=== PATIENT | male | born 2000 | race Caucasian/White ===

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

== ENCOUNTER 2020-01-02 15:04 | Emergency (ER) | payer BC ==
[2020-01-02 15:14] VITALS: BP 133/77; PULSE 65
--- NOTE | 2020-01-02 15:42 | EDM.PDOC ---
ED HPI GENERAL MEDICAL PROBLEM - General Chief Complaint: ENT Problem Stated Complaint: PAIN IN RT SIDE OF MOUTH Time Seen by Provider: 01/02/20 15:42 Source of Information: Reports: Patient History Limitations: Reports: No Limitations - History of Present Illness INITIAL COMMENTS - FREE TEXT/NARRATIVE: pt arrived with increased pain in the rt lower area. where the wisdom tooth was extracted. He has not had a fever but he does have sig swelling in th site. Onset: Gradual, Other ( He had all 4 teeth extracted all are doing well except the rt lower) Duration: Hour(s): Location: Reports: Face Associated Symptoms: Reports: No Other Symptoms - Related Data Allergies Allergy/AdvReac Type Severity Reaction Status Date / Time No Known Allergies Allergy Verified 01/02/20 15:17 Home Meds: Home Meds QUEtiapine [SEROquel] 1 tab PO BEDTIME 03/21/18 [History] Amoxicillin 1 tab PO BID 01/02/20 [History] Sertraline [Zoloft] 1 tab PO BEDTIME 01/02/20 [History] Past Medical History HEENT History: Reports: None Cardiovascular History: Reports: None Respiratory History: Reports: Asthma Gastrointestinal History: Reports: None Genitourinary History: Reports: None Musculoskeletal History: Reports: None Neurological History: Reports: None Psychiatric History: Reports: Anxiety, Depression, Other (See Below) Other Psychiatric History: Possible ADHD Endocrine/Metabolic History: Reports: None Hematologic History: Reports: None Immunologic History: Reports: None Oncologic (Cancer) History: Reports: None Dermatologic History: Reports: None - Past Surgical History Other GI Surgeries/Procedures: SURGICAL STOMACH REPAIR Social & Family History - Caffeine Use Caffeine Use: Reports: Soda ED ROS ENT - Review of Systems Review Of Systems: See Below Constitutional: Reports: Other ( increased pain) HEENT: Reports: No Symptoms Respiratory: Reports: No Symptoms Cardiovascular: Reports: No Symptoms Endocrine: Reports: No Symptoms GI/Abdominal: Reports: No Symptoms : Reports: No Symptoms Skin: Reports: No Symptoms Neurological: Reports: No Symptoms ED EXAM, ENT - Physical Exam Exam: See Below Text/Narrative:: pt arrived with swelling and pain in the rt lower wisdom tooth area. He had all 4 extracted on fri. Exam Limited By: No Limitations General Appearance: Alert, Anxious, Moderate Distress Ears: Normal TMs Nose: Normal Inspection Mouth/Throat: Other (swelling alog the jaw, ant lympm nodes swolllen. ) Head: Atraumatic Neck: Lymphadenopathy (R) Respiratory/Chest: No Respiratory Distress Cardiovascular: Regular Rate, Rhythm GI/Abdominal: Soft, Non-Tender Course - Vital Signs Last Recorded V/S: Last Vital Signs Temp 36.6 C 01/02/20 15:26 Pulse 65 01/02/20 15:26 Resp 16 01/02/20 15:26 BP 133/77 01/02/20 15:26 Pulse Ox 95 01/02/20 15:26 - Orders/Labs/Meds Orders: Active Orders 24 hr Category Date Time Status cefTRIAXone 1 GM,Lidocaine 1% 2.1 ML Med 01/02/20 15:49 Ordered cefTRIAXone [Rocephin] 1 gm Lidocaine 1% [Xylocaine-MPF 1%] 2.1 ml IM ONETIME - Re-Assessments/Exams Free Text/Narrative Re-Assessment/Exam: 01/02/20 15:55 pt was given rocephen 1 gm im. Departure - Departure Time of Disposition: 15:55 Disposition: Home, Self-Care 01 Condition: Fair Clinical Impression: History of wisdom tooth extraction, Infection of tooth socket - Discharge Information Referrals: Carolyn Coe MD [Primary Care Provider] - Forms: ED Department Discharge Care Plan Goals: zithromax, norco 5/325 q6h prn for pain, if not improving call oral surgeon who did the extraction. Sepsis Event Note - Evaluation Sepsis Screening Result: No Definite Risk - Focused Exam Vital Signs: Vital Signs Temp Pulse Resp BP Pulse Ox 01/02/20 15:26 36.6 C 65 16 133/77 95 01/02/20 15:13 36.6 C 65 16 133/77 95 Date Exam was Performed: 01/02/20 Time Exam was Performed: 15:50 - My Orders Last 24 Hours: My Active Orders 01/02/20 15:49 cefTRIAXone 1 GM,Lidocaine 1% 2.1 ML cefTRIAXone [Rocephin] 1 gm Lidocaine 1% [ Xylocaine-MPF 1%] 2.1 ml IM ONETIME - Assessment/Plan Last 24 Hours: My Active Orders 01/02/20 15:49 cefTRIAXone 1 GM,Lidocaine 1% 2.1 ML cefTRIAXone [Rocephin] 1 gm Lidocaine 1% [ Xylocaine-MPF 1%] 2.1 ml IM ONETIME
[2020-01-02] MEDS ORDERED: cefTRIAXone 1 GM, Lidocaine 1% 2.1 ML IM ONE ×2 (15:49)
== END 2020-01-02 16:09 | disposition home or self-care (01) ==
LOC: JP.ED 15:04
DX: K04.7 Periapical abscess without sinus (principal)
CPT/HCPCS: 96372; 99282; J0696; J2001

== ENCOUNTER 2020-03-18 12:41 | Emergency (ER) | payer BC, MEDICAID ==
[2020-03-18] MEDS ORDERED: Ondansetron 4 MG Tab.DIS PO ONE (12:58)
[2020-03-18] MEDS ORDERED: Ketorolac 60 MG/2 ML SDV IM ONE (12:58)
[2020-03-18] MEDS ORDERED: Acetaminophen/oxyCODONE 325-5 MG Tab PO STA (12:59)
[2020-03-18] MEDS ORDERED: Ondansetron 4 MG/2 ML SDV ONE (13:00)
[2020-03-18] MEDS ORDERED: Ketorolac 30 MG/ML SDV ONE (13:00)
[2020-03-18 13:02] VITALS: BP 130/73; PULSE 93
[2020-03-18] MEDS ORDERED: Ondansetron 4 MG/2 ML SDV IVPUSH ONE (13:17)
[2020-03-18] MEDS ORDERED: Ketorolac 30 MG/ML SDV IVPUSH ONE (13:17)
--- NOTE | 2020-03-18 13:23 | EDM.PDOC ---
ED HPI GENERAL MEDICAL PROBLEM - General Chief Complaint: Flank Pain Stated Complaint: RIGHT SIDE ABD PAIN Time Seen by Provider: 03/18/20 13:10 Source of Information: Reports: Patient, Old Records, RN History Limitations: Reports: No Limitations - History of Present Illness INITIAL COMMENTS - FREE TEXT/NARRATIVE: 19 yo male here with R flank pain that was mild and intermittent beginning about 4 days ago. Today the pain is severe. No gross hematuria or dysuria. No hx of kidney stones. No fever or chills. Has nausea without vomiting. No pain with pressing on the area. No SOB or cough. No self tx. Onset: Gradual Onset Date: 03/14/20 Duration: Day(s): (4), Getting Worse, Waxing/Waning Location: Reports: Back (R flank) Quality: Reports: Stabbing Severity: Severe Improves with: Reports: None Worsens with: Reports: Other (unknown) Context: Reports: Other (See HPI) Associated Symptoms: Reports: Nausea/Vomiting (no vomiting). Denies: Fever/ Chills Treatments EVENT SERVICES MANAGER: Reports: Other (see below) (none) - Related Data Allergies Allergy/AdvReac Type Severity Reaction Status Date / Time No Known Allergies Allergy Verified 03/18/20 12:49 Home Meds: Home Meds QUEtiapine [SEROquel] 1 tab PO BEDTIME 03/21/18 [History] Sertraline [Zoloft] 1 tab PO BEDTIME 01/02/20 [History] Acetaminophen/HYDROcodone [Robert 325-5 MG] 1 - 2 tab PO Q6H PRN #20 tab [Rx] Ondansetron [Zofran ODT] 4 mg PO Q6H PRN #10 tab.dis 03/18/20 [Rx] Past Medical History HEENT History: Reports: None Cardiovascular History: Reports: None Respiratory History: Reports: Asthma Gastrointestinal History: Reports: None Genitourinary History: Reports: None Musculoskeletal History: Reports: None Neurological History: Reports: None Psychiatric History: Reports: Anxiety, Depression, Other (See Below) Other Psychiatric History: Possible ADHD Endocrine/Metabolic History: Reports: None Hematologic History: Reports: None Immunologic History: Reports: None Oncologic (Cancer) History: Reports: None Dermatologic History: Reports: None - Past Surgical History Other GI Surgeries/Procedures: SURGICAL STOMACH REPAIR Social & Family History - Caffeine Use Caffeine Use: Reports: Soda ED ROS GENERAL - Review of Systems Review Of Systems: See Below Constitutional: Reports: No Symptoms HEENT: Reports: No Symptoms Respiratory: Reports: No Symptoms Cardiovascular: Reports: No Symptoms GI/Abdominal: Reports: No Symptoms, Nausea. Denies: Abdominal Pain, Black Stool , Bloody Stool, Constipation, Diarrhea, Hematemesis, Hematochezia, Melena, Vomiting : Reports: Flank Pain (right) Musculoskeletal: Reports: No Symptoms Skin: Reports: No Symptoms Neurological: Reports: No Symptoms ED EXAM, RENAL/ - Physical Exam Exam: See Below Exam Limited By: No Limitations General Appearance: Alert, WD/WN, Mild Distress Head: Atraumatic, Normocephalic Respiratory/Chest: No Respiratory Distress, Lungs Clear, Normal Breath Sounds, No Accessory Muscle Use Cardiovascular: Regular Rate, Rhythm, No Edema GI/Abdominal: Soft, Non-Tender, No Distention Extremities: Normal Inspection Neurological: Alert, Oriented, CN II-XII Intact, Normal Cognition, No Motor/ Sensory Deficits Psychiatric: Normal Affect, Normal Mood Skin Exam: Warm, Dry, Intact, Normal Color, No Rash Course - Vital Signs Last Recorded V/S: Last Vital Signs Temp 36.3 C 03/18/20 12:55 Pulse 93 03/18/20 12:55 Resp 16 03/18/20 12:55 BP 130/73 03/18/20 12:55 Pulse Ox 99 03/18/20 12:55 - Orders/Labs/Meds Labs: Laboratory Tests 03/18/20 Range/Units 13:24 Urine Color Yellow (YELLOW) Urine Appearance Slightly cloudy A (CLEAR) Urine pH 5.5 (5.0-8.0) Ur Specific [place] >= 1.030 (1.008-1.030) Urine Protein 30 H (NEGATIVE) mg/dL Urine Glucose (UA) Negative (NEGATIVE) mg/dL Urine Ketones Negative (NEGATIVE) mg/dL Urine Occult Blood Moderate H (NEGATIVE) Urine Nitrite Negative (NEGATIVE) Urine Bilirubin Small H (NEGATIVE) Urine Urobilinogen 0.2 (0.2-1.0) EU/dL Ur Leukocyte Esterase Negative (NEGATIVE) Urine RBC 50-75 H (0-5) Urine WBC 5-10 H (0-5) Ur Epithelial Cells Few Amorphous Sediment Not seen Urine Bacteria Few Urine Mucus Few Meds: Medications Discontinued Medications Generic Name Dose Route Start Last Admin Trade Name Freq PRN Reason Stop Dose Admin Ketorolac Tromethamine 60 mg 03/18/20 12:58 Toradol IM 03/18/20 12:59 ONETIME ONE Ketorolac Tromethamine Confirm 03/18/20 13:00 Toradol Administered 03/18/20 13:01 Dose 30 mg .ROUTE .STK-MED ONE Ketorolac Tromethamine 30 mg 03/18/20 13:17 03/18/20 13:22 Toradol IVPUSH 03/18/20 13:18 30 mg ONETIME ONE Administration Ondansetron HCl 4 mg 03/18/20 12:58 Zofran Odt PO 03/18/20 12:59 ONETIME ONE Ondansetron HCl Confirm 03/18/20 13:00 Zofran Administered 03/18/20 13:01 Dose 4 mg .ROUTE .STK-MED ONE Ondansetron HCl 4 mg 03/18/20 13:17 03/18/20 13:22 Zofran IVPUSH 03/18/20 13:18 4 mg ONETIME ONE Administration Oxycodone/Acetaminophen 1 tab 03/18/20 12:59 03/18/20 13:21 Percocet 325-5 Mg PO 03/18/20 13:00 1 tab NOW STA Administration - Re-Assessments/Exams Free Text/Narrative Re-Assessment/Exam: 03/18/20 13:55 Feeling better after our medications. Wants to wait on the CT scan. Departure - Departure Time of Disposition: 14:00 Disposition: Home, Self-Care 01 Condition: Fair Clinical Impression: Right kidney stone - Discharge Information *PRESCRIPTION DRUG MONITORING PROGRAM REVIEWED*: No *COPY OF PRESCRIPTION DRUG MONITORING REPORT IN PATIENT NICOLLE: No Prescriptions: Acetaminophen/HYDROcodone [Robert 325-5 MG] 1 - 2 tab PO Q6H PRN #20 tab PRN Reason: Pain Ondansetron [Zofran ODT] 4 mg PO Q6H PRN #10 tab.dis PRN Reason: Nausea Referrals: Carolyn Coe MD [Primary Care Provider] - Forms: ED Department Discharge Additional Instructions: Use Zofran as needed for nausea control. Drink enough urine so that your urine is almost colorless. Strain your urine and save any sediment for testing by your doctor. Take ibuprofen 600 mg every 6 hrs with food for pain relief starting after 7 pm today. Take Robert for added relief as needed. Return for fever or insufficient pain control or see your provider. If you haven't passed your stone by next you need to be seen again. Sepsis Event Note - Evaluation Sepsis Screening Result: No Definite Risk - Focused Exam Vital Signs: Vital Signs Temp Pulse Resp BP Pulse Ox 03/18/20 12:55 36.3 C 93 16 130/73 99 Date Exam was Performed: 03/18/20 Time Exam was Performed: 13:55
== END 2020-03-18 14:40 | disposition home or self-care (01) ==
LOC: JP.ED 12:41
DX: N20.0 Calculus of kidney (principal); F41.9 Anxiety disorder, unspecified; F32.9 Major depressive disorder, single episode, unspecified
CPT/HCPCS: 81001; 96374; 96375; 99284; A9270; J1885; J2405

== ENCOUNTER 2020-03-22 11:53 | Emergency (ER) | payer BC, MEDICAID ==
[2020-03-22 12:45] VITALS: BP 123/72; PULSE 111
[2020-03-22] MEDS ORDERED: Acetaminophen 500 MG Tab PO ONE (12:49)
[2020-03-22] MEDS ORDERED: Ketorolac 60 MG/2 ML SDV IM ONE (12:49)
--- NOTE | 2020-03-22 12:54 | EDM.PDOC ---
ED HPI GENERAL MEDICAL PROBLEM - General Chief Complaint: Flank Pain Stated Complaint: RT FLANK PAIN Time Seen by Provider: 03/22/20 12:40 Source of Information: Reports: Patient, Old Records History Limitations: Reports: No Limitations - History of Present Illness INITIAL COMMENTS - FREE TEXT/NARRATIVE: 19 yo male was seen here recently for a kidney stone. Was doing OK at home until he ran out of his hydrocodone. Took Toradol 10 mg po about 4 hrs ago without relief. No fever or nausea. Has not attempted per his knowledge to get into his primary's office. Lives with his parents still. Onset: Sudden Onset Date: 03/17/20 Duration: Day(s):, Waxing/Waning Location: Reports: Back (R flank) Quality: Reports: Ache, Stabbing Severity: Moderate Improves with: Reports: Medication Worsens with: Reports: Other (? stone movement, meds wearing off) Context: Reports: Other (See HPI) Associated Symptoms: Reports: No Other Symptoms Treatments SEWER TAPPER: Reports: NSAIDS (Toradol 10 mg po) Right Flank Pain Score (Numeric/FACES): 7 - Related Data Allergies Allergy/AdvReac Type Severity Reaction Status Date / Time No Known Allergies Allergy Verified 03/22/20 12:34 Home Meds: Home Meds Sertraline [Zoloft] 1 tab PO BEDTIME 01/02/20 [History] Acetaminophen/HYDROcodone [[place] 325-5 MG] 1 - 2 tab PO Q6H PRN #20 tab [Rx] Ondansetron [Zofran ODT] 4 mg PO Q6H PRN #10 tab.dis 03/18/20 [Rx] Past Medical History HEENT History: Reports: None Cardiovascular History: Reports: None Respiratory History: Reports: Asthma Gastrointestinal History: Reports: None Genitourinary History: Reports: None Musculoskeletal History: Reports: None Neurological History: Reports: None Psychiatric History: Reports: Anxiety, Depression, Other (See Below) Other Psychiatric History: Possible ADHD Endocrine/Metabolic History: Reports: None Hematologic History: Reports: None Immunologic History: Reports: None Oncologic (Cancer) History: Reports: None Dermatologic History: Reports: None - Past Surgical History Other GI Surgeries/Procedures: SURGICAL STOMACH REPAIR Social & Family History - Tobacco Use Smoking Status *Q: Former Smoker Used Tobacco, but Quit: Yes Month/Year Tobacco Last Used: 2020 - Caffeine Use Caffeine Use: Reports: None - Recreational Drug Use Recreational Drug Use: No ED ROS GENERAL - Review of Systems Review Of Systems: See Below Constitutional: Reports: No Symptoms HEENT: Reports: No Symptoms Respiratory: Reports: No Symptoms Cardiovascular: Reports: No Symptoms GI/Abdominal: Reports: No Symptoms. Denies: Nausea : Reports: Flank Pain (right). Denies: Dysuria, Hematuria, Urgency Musculoskeletal: Reports: No Symptoms Skin: Reports: No Symptoms Neurological: Reports: No Symptoms ED EXAM, RENAL/ - Physical Exam Exam: See Below Exam Limited By: No Limitations General Appearance: Alert, WD/WN, No Apparent Distress Eye Exam: Bilateral Eye: Normal Inspection Ears: Hearing Grossly Normal Nose: Normal Inspection, No Blood Throat/Mouth: Normal Voice, No Airway Compromise Head: Atraumatic, Normocephalic Neck: Normal Inspection Respiratory/Chest: No Respiratory Distress, Lungs Clear, Normal Breath Sounds, No Accessory Muscle Use Cardiovascular: Regular Rate, Rhythm, No Edema GI/Abdominal: Soft, Non-Tender, No Distention. No: Distended Back Exam: Normal Inspection. No: CVA Tenderness (R), CVA Tenderness (L) Extremities: Normal Inspection, Normal Range of Motion, Non-Tender, No Pedal Edema Neurological: Alert, Oriented, CN II-XII Intact, Normal Cognition, No Motor/ Sensory Deficits Psychiatric: Normal Affect, Normal Mood Skin Exam: Warm, Dry, Intact, Normal Color, No Rash Course - Vital Signs Last Recorded V/S: Last Vital Signs Temp 36.9 C 03/22/20 12:49 Pulse 111 H 03/22/20 12:49 Resp 17 03/22/20 12:49 BP 123/72 03/22/20 12:49 Pulse Ox 96 03/22/20 12:49 - Orders/Labs/Meds Orders: Active Orders 24 hr Category Date Time Status CULTURE URINE [RM] Stat Lab 03/22/20 13:12 Received Labs: Laboratory Tests 03/22/20 Range/Units 12:53 Urine Color Yellow (YELLOW) Urine Appearance Clear (CLEAR) Urine pH 6.0 (5.0-8.0) Ur Specific [place] 1.025 (1.008-1.030) Urine Protein Negative (NEGATIVE) mg/dL Urine Glucose (UA) Negative (NEGATIVE) mg/dL Urine Ketones Negative (NEGATIVE) mg/dL Urine Occult Blood Small H (NEGATIVE) Urine Nitrite Negative (NEGATIVE) Urine Bilirubin Negative (NEGATIVE) Urine Urobilinogen 0.2 (0.2-1.0) EU/dL Ur Leukocyte Esterase Trace H (NEGATIVE) Urine RBC 5-10 H (0-5) Urine WBC 5-10 H (0-5) Ur Epithelial Cells Rare Amorphous Sediment Not seen Urine Bacteria Rare Urine Mucus Not seen Urine Other Meds: Medications Discontinued Medications Generic Name Dose Route Start Last Admin Trade Name Gina PRN Reason Stop Dose Admin Acetaminophen 1,000 mg 03/22/20 12:49 03/22/20 12:53 Tylenol Extra Strength PO 03/22/20 12:50 1,000 mg ONETIME ONE Administration Ketorolac Tromethamine 60 mg 03/22/20 12:49 03/22/20 12:53 Toradol IM 03/22/20 12:50 60 mg ONETIME ONE Administration - Radiology Interpretation Free Text/Narrative:: CT abd/pelvis without qmquffqu-3-5 mm stone distal R ureter CT Results Date: 03/22/20 CT Results Time: 13:40 Departure - Departure Time of Disposition: 13:50 Disposition: Home, Self-Care 01 Condition: Fair Clinical Impression: Ureterolithiasis, Right kidney stone - Discharge Information *PRESCRIPTION DRUG MONITORING PROGRAM REVIEWED*: No *COPY OF PRESCRIPTION DRUG MONITORING REPORT IN PATIENT NICOLLE: No Instructions: Kidney Stones Referrals: Carolyn Coe MD [Primary Care Provider] - Forms: ED Department Discharge Additional Instructions: Continue straining urine and save any sediment. Recheck with your provider before the weekend. Drink lots of fluids. Take Aleve 2 every 8-12 hrs with food. Add [place] for added relief as needed OR acetaminophen. Sepsis Event Note - Focused Exam Vital Signs: Vital Signs Temp Pulse Resp BP Pulse Ox 03/22/20 12:49 36.9 C 111 H 17 123/72 96 03/22/20 12:44 36.9 C 111 H 17 123/72 96 Date Exam was Performed: 03/22/20 Time Exam was Performed: 13:44 - My Orders Last 24 Hours: My Active Orders 03/22/20 13:12 CULTURE URINE [RM] Stat - Assessment/Plan Last 24 Hours: My Active Orders 03/22/20 13:12 CULTURE URINE [RM] Stat
--- NOTE | 2020-03-22 13:39 | CT ---
Abdomen Pelvis wo Cont CLINICAL HISTORY: Microscopic hematuria, right flank pain COMPARISON: None. TECHNIQUE: Axial tomographic images are obtained from the dome of the diaphragm to the pubic symphysis without IV contrast enhancement. No oral contrast was used. Auto dosage reduction and iterative reconstruction techniques employed. FINDINGS: The lung bases are clear. The liver shows no mass or biliary dilatation. The gallbladder has a normal contour. The spleen is upper limits of normal size. The pancreas shows no mass or inflammatory change. The adrenal glands appear normal bilaterally. The right kidney is hydronephrotic. Right ureter is dilated along its length. There is a 3 x 4 mm stone in the distal ureter proximally 5 mm from the UVJ. There is a punctate nonobstructing stone in the mid to lower pole of the right kidney. There is a punctate calcification lower pole of the left kidney. There is no hydronephrosis or hydroureter. The bladder is empty there is some fecal retention in the right and transverse colon. The appendix has a normal contour. IMPRESSION: Partially obstructing 3 x 4 mm stone in the distal right ureter. Punctate nonobstructing renal calculi bilaterally
== END 2020-03-22 14:03 | disposition home or self-care (01) ==
LOC: JP.ED 11:53
DX: N13.2 Hydronephrosis with renal and ureteral calculous obstruction (principal); Z87.442 Personal history of urinary calculi; Z79.899 Other long term (current) drug therapy
CPT/HCPCS: 74176; 81001; 87086; 96372; 99284; A9270; J1885

== ENCOUNTER 2020-06-01 15:53 | Emergency (ER) | payer BC, MEDICAID ==
[2020-06-01] MEDS ORDERED: Ondansetron 4 MG/2 ML SDV IVPUSH ONE (16:58)
[2020-06-01] MEDS ORDERED: Sodium Chloride 0.9% 1,000 ML IV ONE (16:58)
[2020-06-01] MEDS ORDERED: Ketorolac 30 MG/ML SDV IVPUSH ONE (16:58)
--- NOTE | 2020-06-01 17:16 | EDM.PDOC ---
ED HPI GENERAL MEDICAL PROBLEM - General Chief Complaint: Flank Pain Stated Complaint: LILLIAN STONE Time Seen by Provider: 06/01/20 16:30 Source of Information: Reports: Patient, Family, Old Records History Limitations: Reports: No Limitations - History of Present Illness INITIAL COMMENTS - FREE TEXT/NARRATIVE: Garland is a 19yo male that presents to ED with his mother for c/o left flank pain. He does have a history of kidney stones in February of 2020. CT at that time showed a 3x4 mm stone in right side and a calcification at the lower pole of left kidney. Pain started 2 hours prior to arrival in left flank and radiating around to the front of the body towards the groin. Rates in 08/03- waxes and wanes some but is constant. Having associated nausea. Feels just like last kidney stone. Onset: Today Duration: Hour(s): (2) Location: Reports: Other (left flank) Quality: Reports: Same as Previous Episode, Sharp, Stabbing Severity: Severe Improves with: Reports: None Worsens with: Reports: None Associated Symptoms: Reports: Nausea/Vomiting Left Flank Pain Score (Numeric/FACES): 7 - Related Data Allergies Allergy/AdvReac Type Severity Reaction Status Date / Time No Known Allergies Allergy Verified 03/22/20 12:34 Home Meds: Home Meds Sertraline [Zoloft] 1 tab PO BEDTIME 01/02/20 [History] Ondansetron [Zofran ODT] 4 mg PO Q6H PRN #10 tab.dis 03/18/20 [Rx] Past Medical History HEENT History: Reports: None Cardiovascular History: Reports: None Respiratory History: Reports: Asthma Gastrointestinal History: Reports: None Genitourinary History: Reports: None Musculoskeletal History: Reports: None Neurological History: Reports: None Psychiatric History: Reports: Anxiety, Depression, Other (See Below) Other Psychiatric History: Possible ADHD Endocrine/Metabolic History: Reports: None Hematologic History: Reports: None Immunologic History: Reports: None Oncologic (Cancer) History: Reports: None Dermatologic History: Reports: None - Past Surgical History GI Surgical History: Reports: Other (See Below) Other GI Surgeries/Procedures: SURGICAL STOMACH REPAIR as infant Social & Family History - Tobacco Use Smoking Status *Q: Never Smoker - Caffeine Use Caffeine Use: Reports: Soda - Recreational Drug Use Recreational Drug Use: No ED ROS GENERAL - Review of Systems Review Of Systems: See Below Constitutional: Reports: No Symptoms HEENT: Reports: No Symptoms Respiratory: Reports: No Symptoms Cardiovascular: Reports: No Symptoms Endocrine: Reports: No Symptoms GI/Abdominal: Reports: Nausea : Reports: Flank Pain (left ) Musculoskeletal: Reports: No Symptoms Skin: Reports: No Symptoms Neurological: Reports: No Symptoms Psychiatric: Reports: No Symptoms Hematologic/Lymphatic: Reports: No Symptoms Immunologic: Reports: No Symptoms ED EXAM, RENAL/ - Physical Exam Exam: See Below Exam Limited By: No Limitations General Appearance: Alert, WD/WN, Mild Distress Head: Atraumatic, Normocephalic Neck: Normal Inspection, Non-Tender, Full Range of Motion. No: Lymphadenopathy (R), Lymphadenopathy (L) Respiratory/Chest: No Respiratory Distress, Lungs Clear, Normal Breath Sounds Cardiovascular: Normal Peripheral Pulses, Regular Rate, Rhythm, No Murmur GI/Abdominal: Normal Bowel Sounds, Soft, Non-Tender (Male) Exam: Deferred Rectal (Males) Exam: Deferred Back Exam: Normal Inspection, CVA Tenderness (L). No: CVA Tenderness (R) Extremities: Normal Inspection, Non-Tender, No Pedal Edema, Normal Capillary Refill Neurological: Alert, Oriented Psychiatric: Normal Affect, Normal Mood Skin Exam: Warm, Dry, Intact Lymphatic: No Adenopathy Course - Vital Signs Last Recorded V/S: Last Vital Signs Temp 98 F 06/01/20 16:57 Pulse 80 06/01/20 18:24 Resp 16 06/01/20 18:24 BP 122/70 06/01/20 18:24 Pulse Ox 98 06/01/20 18:24 - Orders/Labs/Meds Orders: Active Orders 24 hr Category Date Time Status HYDROmorphone [Dilaudid] Med 06/01/20 18:37 Once 0.5 mg IVPUSH ONETIME ONE Labs: Laboratory Tests 06/01/20 06/01/20 Range/Units 16:14 17:10 Sodium 139 L (140-148) mmol/L Potassium 3.9 (3.6-5.2) mmol/L Chloride 104 (100-108) mmol/L Carbon Dioxide 24 (21-32) mmol/L Anion Gap 14.9 H (5.0-14.0) mmol/L BUN 17 (7-18) mg/dL Creatinine 1.3 (0.8-1.3) mg/dL Est Cr Clr Drug Dosing 90.64 mL/min Estimated GFR (MDRD) > 60 (>60) Glucose 97 (74-106) mg/dL Calcium 9.5 (8.5-10.1) mg/dL Urine Color Yellow (YELLOW) Urine Appearance Slightly cloudy A (CLEAR) Urine pH 5.5 (5.0-8.0) Ur Specific [place] >= 1.030 (1.008-1.030) Urine Protein Negative (NEGATIVE) mg/dL Urine Glucose (UA) Negative (NEGATIVE) mg/dL Urine Ketones Negative (NEGATIVE) mg/dL Urine Occult Blood Moderate H (NEGATIVE) Urine Nitrite Negative (NEGATIVE) Urine Bilirubin Negative (NEGATIVE) Urine Urobilinogen 0.2 (0.2-1.0) EU/dL Ur Leukocyte Esterase Negative (NEGATIVE) Urine RBC 20-30 H (0-5) Urine WBC 0-5 (0-5) Ur Epithelial Cells Rare Amorphous Sediment Not seen Urine Bacteria Not seen Urine Mucus Moderate Urine Other Meds: Medications Discontinued Medications Generic Name Dose Route Start Last Admin Trade Name Freq PRN Reason Stop Dose Admin Hydromorphone HCl 0.5 mg 06/01/20 17:38 06/01/20 17:48 Dilaudid IVPUSH 06/01/20 17:39 0.5 mg ONETIME ONE Administration Sodium Chloride 1,000 mls @ 999 mls/hr 06/01/20 16:58 06/01/20 17:19 Normal Saline IV 06/01/20 17:58 999 mls/hr .BOLUS ONE Administration Ketorolac Tromethamine 30 mg 06/01/20 16:58 06/01/20 17:23 Toradol IVPUSH 06/01/20 16:59 30 mg ONETIME ONE Administration Ondansetron HCl 4 mg 06/01/20 16:58 06/01/20 17:21 Zofran IVPUSH 06/01/20 16:59 4 mg ONETIME ONE Administration Tamsulosin HCl 0.4 mg 06/01/20 17:38 06/01/20 17:47 Flomax PO 06/01/20 17:39 0.4 mg ONETIME ONE Administration - Radiology Interpretation Free Text/Narrative:: CT results discussed with mother and patient. Departure - Departure Time of Disposition: 18:39 Disposition: Home, Self-Care 01 Condition: Good Clinical Impression: Renal calculus, left, Hydronephrosis with ureteral calculus - Discharge Information *PRESCRIPTION DRUG MONITORING PROGRAM REVIEWED*: No *COPY OF PRESCRIPTION DRUG MONITORING REPORT IN PATIENT NICOLLE: No Instructions: Kidney Stones, [id number] Referrals: Carolyn Coe MD [Primary Care Provider] - Forms: ED Department Discharge Additional Instructions: Take 1 Flomax daily for the next five days. Use the toradol and Percocet as needed for pain. Do not use the toradol for more than 5 days. Strain your urine. Your stone is 1mm so it may be really hard to see. Push lots of fluids and avoid all pop/ soda. Call or return to ED with worsening of symptoms or other concerns. Sepsis Event Note (ED) - Evaluation Sepsis Screening Result: No Definite Risk - Focused Exam Vital Signs: Vital Signs Temp Pulse Resp BP Pulse Ox 06/01/20 18:24 80 16 122/70 98 06/01/20 16:57 98 F 108 H 20 115/81 96 06/01/20 16:42 108 H 115/81 96 06/01/20 16:19 98 F 98 20 115/81 96 - My Orders Last 24 Hours: My Active Orders 06/01/20 18:37 HYDROmorphone [Dilaudid] 0.5 mg IVPUSH ONETIME ONE - Assessment/Plan Last 24 Hours: My Active Orders 06/01/20 18:37 HYDROmorphone [Dilaudid] 0.5 mg IVPUSH ONETIME ONE Plan: discharge home with mother. Scripts for Flomax, pain medications (Toradol and Percocet).
[2020-06-01] MEDS ORDERED: Tamsulosin 0.4 MG Cap.ER PO ONE (17:38)
[2020-06-01] MEDS ORDERED: HYDROmorphone 0.5 MG/0.5 ML Syringe IVPUSH ONE ×2 (17:38→18:37)
--- NOTE | 2020-06-01 18:13 | CRLCT ---
INDICATION: Left flank pain TECHNIQUE: CT abdomen and pelvis without contrast. COMPARISON: 03/22/2020 FINDINGS: Lower chest: Unremarkable. Liver: Unremarkable. Spleen: Upper limits of normal splenic size. Pancreas: Unremarkable. Gallbladder and bile ducts: Apparent gallbladder sludge. Adrenal glands: Unremarkable. Kidneys: Mild left hydronephrosis and dilatation of the extrarenal pelvis with a punctate calcification in the distal left ureter proximal to the UVJ on image 188, measuring approximately 1 mm. Small nonobstructive bilateral renal calcifications, measuring 2 mm. GI tract: No bowel obstruction. No evidence of appendicitis. No significant pericolonic changes. Stool throughout the majority of the colon. Vascular structures: Unremarkable. Lymph nodes: Unremarkable. Miscellaneous: Mild bladder wall thickening which could be related to underdistention. An unremarkable prostate. Pelvic Organs: Unremarkable. Bones: Unremarkable for age. IMPRESSION: Mild left obstructive uropathy with a 1 mm calculus in the distal left ureter. Small nonobstructive renal calcifications. Mild bladder wall thickening versus underdistention. Correlate with urinalysis to exclude mild cystitis. Dictated by Carlos Pineda MD @ 06/01/2020 6:11:39 PM Please note that all CT scans at this facility use dose modulation, iterative reconstruction, and/or weight-based dosing when appropriate to reduce radiation dose to as low as reasonably achievable. Dictated by: Carlos Pineda MD @ 06/01/2020 18:11:49 (Electronically Signed)
[2020-06-01 18:25] VITALS: BP 122/70; PULSE 80
== END 2020-06-01 19:06 | disposition home or self-care (01) ==
LOC: JP.ED 15:53
DX: N13.2 Hydronephrosis with renal and ureteral calculous obstruction (principal)
CPT/HCPCS: 36415; 74176; 80048; 81001; 96361; 96374; 96375; 96376; 99284; A9270; J1170; J1885; J2405; J7030

== ENCOUNTER 2020-06-06 01:49 | Emergency (ER) | payer BC, MEDICAID ==
[2020-06-06] MEDS ORDERED: Sodium Chloride 0.9% 1,000 ML IV ONE (02:06)
[2020-06-06] MEDS ORDERED: HYDROmorphone 0.5 MG/0.5 ML Syringe IVPUSH ONE (02:08)
--- NOTE | 2020-06-06 02:13 | EDM.PDOC ---
ED HPI GENERAL MEDICAL PROBLEM - General Chief Complaint: Flank Pain Stated Complaint: ABD PAIN Time Seen by Provider: 06/06/20 02:00 Source of Information: Reports: Patient, Family History Limitations: Reports: No Limitations - History of Present Illness INITIAL COMMENTS - FREE TEXT/NARRATIVE: 19-year-old male with significant left flank and abdominal pain after ureteral stent was removed by the patient 12 hours ago. He was diagnosed with a small distal left ureteral stone 4 days ago, but was followed up in [place] and had an obstructive uropathy and "infection" and had a stent placed. The stent was removed 12 hours ago, he felt fine initially but the pain returned tonight. No fevers or chills. Duration: Day(s): (Patient is a pain for the past 4 days) Location: Reports: Abdomen (Especially on the left side) Quality: Reports: Sharp, Stabbing Left Flank Pain Score (Numeric/FACES): 10 - Related Data Allergies Allergy/AdvReac Type Severity Reaction Status Date / Time morphine Allergy Hives Verified 06/06/20 01:58 Home Meds: Home Meds Sertraline [Zoloft] 1 tab PO BEDTIME 01/02/20 [History] Hydrocodone/Acetaminophen [[place] 5-325 Tablet] 1 each PO Q6H PRN 06/06/20 [History] Ketorolac [Toradol] 1 tab PO Q6H PRN 06/06/20 [History] Oxybutynin Chloride 1 tab PO TID 06/06/20 [History] QUEtiapine [SEROquel] 150 mg PO DAILY 06/06/20 [History] Sulfamethoxazole/Trimethoprim [Bactrim Ds Tablet] 1 mg PO BID 06/06/20 [History] Tamsulosin [Flomax] 1 cap PO DAILY 06/06/20 [History] Past Medical History HEENT History: Reports: None Cardiovascular History: Reports: None Respiratory History: Reports: Asthma Gastrointestinal History: Reports: None Genitourinary History: Reports: None Musculoskeletal History: Reports: None Neurological History: Reports: None Psychiatric History: Reports: Anxiety, Depression, Other (See Below) Other Psychiatric History: Possible ADHD Endocrine/Metabolic History: Reports: None Hematologic History: Reports: None Immunologic History: Reports: None Oncologic (Cancer) History: Reports: None Dermatologic History: Reports: None - Past Surgical History GI Surgical History: Reports: Other (See Below) Other GI Surgeries/Procedures: SURGICAL STOMACH REPAIR as Social & Family History - Caffeine Use Caffeine Use: Reports: Soda ED ROS GENERAL - Review of Systems Review Of Systems: See Below Constitutional: Reports: Malaise. Denies: Fever, Chills HEENT: Reports: No Symptoms Respiratory: Denies: Shortness of Breath GI/Abdominal: Reports: Abdominal Pain. Denies: Vomiting Skin: Reports: No Symptoms Neurological: Reports: No Symptoms Psychiatric: Reports: No Symptoms ED EXAM, GI/ABD - Physical Exam Exam: See Below Exam Limited By: No Limitations General Appearance: Alert, Moderate Distress (On arrival the patient acted moderately distressed and uncomfortable) Eyes: Bilateral: Normal Appearance (No jaundice) Respiratory/Chest: No Respiratory Distress, Lungs Clear Cardiovascular: Regular Rate, Rhythm GI/Abdominal Exam: Soft, Tender (Did react with some tenderness to palpation along the left abdomen) Back Exam: CVA Tenderness (L) (Some CVA tenderness on the left side) Course - Vital Signs Last Recorded V/S: Last Vital Signs Temp 98.3 F 06/06/20 02:24 Pulse 94 06/06/20 03:21 Resp 16 06/06/20 03:21 BP 121/58 L 06/06/20 03:21 Pulse Ox 99 06/06/20 03:21 - Orders/Labs/Meds Labs: Laboratory Tests 06/06/20 06/06/20 06/06/20 Range/Units 02:16 02:16 02:17 WBC 6.3 (4.5-11.0) K/uL RBC 4.46 (4.30-5.90) M/uL Hgb 12.7 (12.0-15.0) g/dL Hct 37.6 L (40.0-54.0) % MCV 84 (80-98) fL MCH 29 (27-31) pg MCHC 34 (32-36) % Plt Count 212 (150-400) K/uL Neut % (Auto) 42 (36-66) % Lymph % (Auto) 43 (24-44) % [place] % (Auto) 13 H (2-6) % Eos % (Auto) 2 (2-4) % Baso % (Auto) 0 (0-1) % Sodium 142 (140-148) mmol/L Potassium 3.7 (3.6-5.2) mmol/L Chloride 103 (100-108) mmol/L Carbon Dioxide 30 (21-32) mmol/L Anion Gap 8.6 (5.0-14.0) mmol/L BUN 18 (7-18) mg/dL Creatinine 1.4 H (0.8-1.3) mg/dL Est Cr Clr Drug Dosing 86.90 mL/min Estimated GFR (MDRD) > 60 (>60) Glucose 91 (74-106) mg/dL Calcium 8.9 (8.5-10.1) mg/dL Urine Color Red A (YELLOW) Urine Appearance Cloudy A (CLEAR) Urine pH 6.0 (5.0-8.0) Ur Specific [place] >= 1.030 (1.008-1.030) Urine Protein 100 H (NEGATIVE) mg/dL Urine Glucose (UA) Negative (NEGATIVE) mg/dL Urine Ketones Negative (NEGATIVE) mg/dL Urine Occult Blood Large H (NEGATIVE) Urine Nitrite Negative (NEGATIVE) Urine Bilirubin Small H (NEGATIVE) Urine Urobilinogen 1.0 (0.2-1.0) EU/dL Ur Leukocyte Esterase Negative (NEGATIVE) Urine RBC Packed H (0-5) Urine WBC Not seen (0-5) Ur Epithelial Cells Not seen Amorphous Sediment Few Urine Bacteria Not seen Urine Mucus Not seen Meds: Medications Discontinued Medications Generic Name Dose Route Start Last Admin Trade Name Freq PRN Reason Stop Dose Admin Hydromorphone HCl 0.5 mg 06/06/20 02:08 06/06/20 02:12 Dilaudid IVPUSH 06/06/20 02:09 0.5 mg ONETIME ONE Administration Sodium Chloride 1,000 mls @ 999 mls/hr 06/06/20 02:06 06/06/20 02:12 Normal Saline IV 06/06/20 03:06 999 mls/hr ONETIME ONE Administration Sodium Chloride 70 mls @ 3 mls/sec 06/06/20 02:41 06/06/20 02:53 Normal Saline IV 06/06/20 02:42 3 mls/sec ASDIRECTED STA Administration Iopamidol 81 ml 06/06/20 02:40 06/06/20 02:52 Isovue-300 (61%) IV 06/06/20 02:41 100 ml . DIRECTED STA Administration Phenazopyridine HCl 190 mg 06/06/20 03:14 06/06/20 03:20 Urinary Pain Relief PO 06/06/20 03:15 190 mg ONETIME ONE Administration - Re-Assessments/Exams Free Text/Narrative Re-Assessment/Exam: 06/06/20 03:10 CBC and BMP were obtained, as well as a UA. Hemoglobin were normal, electrolytes were normal, creatinine is only mildly elevated at 1.4 and GFR was normal. UA showed RBCs which were to be expected but no evidence of infection. After patient was given 0.5 mg of IV Dilaudid he seemed markedly improved. CT of abdomen and pelvis with IV contrast was obtained. 06/06/20 03:48 IMPRESSION: 1. Nephrolithiasis with mild left hydronephrosis, periureteral inflammation as well as urothelial thickening. This transitions at the level of the proximal left ureter. I do not see a definite stone at the transition point, however note that a very small stone could be obscured by the IV contrast. Differential diagnosis would include hydronephrosis secondary to ureteral edema from recent instrumentation or a small occult stone. Departure - Departure Time of Disposition: 04:01 Disposition: Home, Self-Care 01 Clinical Impression: Renal colic on left side - Discharge Information Instructions: Renal Colic, [id number] Referrals: PCP,None [Primary Care Provider] - Forms: ED Department Discharge Care Plan Goals: Call urology in [place] tomorrow to discuss symptoms and follow-up. They can call tomorrow for an official transcribed report of the CT scan and it can be faxed to them. Sepsis Event Note (ED) - Focused Exam Vital Signs: Vital Signs Temp Pulse Resp BP Pulse Ox 06/06/20 03:21 94 16 121/58 L 99 06/06/20 02:24 98.3 F 81 20 124/90 94 L 06/06/20 02:03 98.3 F 81 20 124/90 94 L
[2020-06-06] MEDS ORDERED: Iopamidol 612 MG/ML 100 ML Bottle IV STA (02:40)
[2020-06-06] MEDS ORDERED: Phenazopyridine 95 MG Tab PO ONE (03:14)
[2020-06-06 03:22] VITALS: BP 121/58; PULSE 94
--- NOTE | 2020-06-06 03:48 | CRLCT ---
INDICATION: Abdominal pain. Ureteral stent removed yesterday. TECHNIQUE: Axial images were obtained from the diaphragm to the pubic symphysis. Reformats were obtained in the coronal and sagittal plane. IV Contrast: 81 cc Isovue-300 Oral Contrast: None COMPARISON: Abdomen and pelvis CT 06/01/2020 FINDINGS: Lower chest: Trace bilateral pleural fluid. Liver: Unremarkable. Normal in size and attenuation. No masses. Gallbladder and bile ducts: Contracted gallbladder without localizing inflammation. Spleen: Unremarkable. Normal in size without mass. Pancreas: Unremarkable. No mass or inflammation. Adrenal glands: Unremarkable. No nodules. Kidneys: Nonobstructing 2 millimeter stones noted within each kidney. Enhancement of the right kidney is normal without hydronephrosis. However, there is a delayed nephrogram on the left with mild left hydronephrosis. This transitions at the level of the proximal ureter. There is mild periureteral fat stranding and urothelial thickening. A large stone is not identified at the transition point, however a small stone may be difficult to exclude given the intravenous contrast in this exam. The remainder of the ureter is decompressed with periureteral fat stranding. Vasculature: Unremarkable. GI tract: The stomach is unremarkable. No dilated loops of large or small intestine. Appendix unremarkable. Pelvis: Trace free fluid deep pelvis. Bones: Unremarkable for age. IMPRESSION: 1. Nephrolithiasis with mild left hydronephrosis, periureteral inflammation as well as urothelial thickening. This transitions at the level of the proximal left ureter. I do not see a definite stone at the transition point, however note that a very small stone could be obscured by the IV contrast. Differential diagnosis would include hydronephrosis secondary to ureteral edema from recent instrumentation or a small occult stone. Please note that all CT scans at this facility use dose modulation, iterative reconstruction, and/or weight-based dosing when appropriate to reduce radiation dose to as low as reasonably achievable. Dictated by Cory Salvador MD @ Jun 06 2020 3:39AM Signed by Dr. Cory Salvador @ Jun 06 2020 3:47AM
== END 2020-06-06 04:03 | disposition home or self-care (01) ==
LOC: JP.ED 01:49
DX: N13.2 Hydronephrosis with renal and ureteral calculous obstruction (principal); J45.909 Unspecified asthma, uncomplicated; F41.9 Anxiety disorder, unspecified; F32.9 Major depressive disorder, single episode, unspecified; Z79.899 Other long term (current) drug therapy; Z88.5 Allergy status to narcotic agent
CPT/HCPCS: 36415; 74177; 80048; 81001; 85025; 96374; 99284; A9270; J1170; J7030; J7050; Q9967

== ENCOUNTER 2020-09-11 15:06 | Emergency (ER) | payer BC, MEDICAID ==
[2020-09-11 15:24] VITALS: BP 124/46; PULSE 104
[2020-09-11] MEDS ORDERED: Ondansetron 4 MG Tab.DIS PO ONE (15:45)
[2020-09-11] MEDS ORDERED: Ketorolac 60 MG/2 ML SDV IM ONE (15:45)
--- NOTE | 2020-09-11 15:48 | EDM.PDOC ---
ED HPI GENERAL MEDICAL PROBLEM - General Chief Complaint: General Stated Complaint: KIDNEY STONE Time Seen by Provider: 09/11/20 15:42 Source of Information: Reports: Patient, Family, RN Notes Reviewed History Limitations: Reports: No Limitations - History of Present Illness INITIAL COMMENTS - FREE TEXT/NARRATIVE: 19-year-old gentleman presents emergency department a complaint of left flank pain, he has a history of multiple kidney stones. This particular 1 started this morning sudden onset of pain that has progressively gotten worse it is colicky in nature he does feel nauseated Left Flank Pain Score (Numeric/FACES): 6 - Related Data Allergies Allergy/AdvReac Type Severity Reaction Status Date / Time morphine Allergy Hives Verified 06/06/20 01:58 Home Meds: Home Meds Sertraline [Zoloft] 1 tab PO BEDTIME 01/02/20 [History] Oxybutynin Chloride 1 tab PO TID 06/06/20 [History] QUEtiapine [SEROquel] 150 mg PO DAILY 06/06/20 [History] Tamsulosin [Flomax] 1 cap PO DAILY 06/06/20 [History] Past Medical History Respiratory History: Reports: Asthma Psychiatric History: Reports: Anxiety, Depression, Other (See Below) Other Psychiatric History: Possible ADHD - Past Surgical History GI Surgical History: Reports: Other (See Below) Other GI Surgeries/Procedures: SURGICAL STOMACH REPAIR as infant Social & Family History - Caffeine Use Caffeine Use: Reports: Soda - Recreational Drug Use Recreational Drug Use: No ED ROS GENERAL - Review of Systems Review Of Systems: See Below Constitutional: Reports: No Symptoms HEENT: Reports: No Symptoms Respiratory: Reports: No Symptoms Cardiovascular: Reports: No Symptoms GI/Abdominal: Reports: Abdominal Pain, Nausea. Denies: Vomiting : Reports: Flank Pain ED EXAM, GENERAL - Physical Exam Exam: See Below Exam Limited By: No Limitations General Appearance: Alert, WD/WN, No Apparent Distress Respiratory/Chest: No Respiratory Distress GI/Abdominal: Soft, Tender (Along the left flank) Course - Vital Signs Last Recorded V/S: Last Vital Signs Temp 98.3 F 09/11/20 15:38 Pulse 104 H 09/11/20 15:38 Resp 16 09/11/20 15:38 BP 124/46 L 09/11/20 15:38 Pulse Ox 100 09/11/20 15:38 - Orders/Labs/Meds Meds: Medications Discontinued Medications Generic Name Dose Route Start Last Admin Trade Name Gina PRN Reason Stop Dose Admin Ketorolac Tromethamine 60 mg 09/11/20 15:45 09/11/20 15:51 Toradol IM 09/11/20 15:46 60 mg ONETIME ONE Administration Ondansetron HCl 4 mg 09/11/20 15:45 09/11/20 15:51 Zofran Odt PO 09/11/20 15:46 4 mg ONETIME ONE Administration Departure - Departure Time of Disposition: 17:06 Disposition: Home, Self-Care 01 Condition: Fair Clinical Impression: Hydronephrosis with ureteral calculus, Renal calculus, left - Discharge Information Instructions: Kidney Stones Referrals: Carolyn Coe MD [Primary Care Provider] - Forms: ED Department Discharge Additional Instructions: Use ibuprofen for baseline pain control use Percocet for breakthrough pain please contact your urologist in the morning for further treatment Sepsis Event Note (ED) - Evaluation Sepsis Screening Result: No Definite Risk - Focused Exam Vital Signs: Vital Signs Temp Pulse Resp BP Pulse Ox 09/11/20 15:38 98.3 F 104 H 16 124/46 L 100 09/11/20 15:23 98.3 F 104 H 16 124/46 L 100 - Assessment/Plan Plan: Assessment Acuity = acute Site and laterality = nephrolithiasis left side distal ureter Etiology = unknown Manifestations = pain Location of injury = Home Lab values = CT scan describes stone above Plan Prescription written for Percocet 5/325 1 tab p.o. 3 times daily as needed total #10, he has Flomax at home he will call his urologist in the morning This note was dictated using [employer] voice recognition software please call with any questions on syntax or grammar.
--- NOTE | 2020-09-11 16:57 | CRLCT ---
Indication: Left flank pain, history of kidney stones Technique: Nonenhanced axial CT imaging through the abdomen and pelvis. Sagittal and coronal reconstructions are provided. Comparison: CT abdomen pelvis with contrast 06/06/2020 Findings: There is a 3 mm stone and the distal left ureter, within 2 cm of the ureterovesical junction. There is mild left hydroureteronephrosis. There are no additional left renal stones. A 2 mm stone is noted in the upper pole the right kidney. The urinary bladder is unremarkable. There is unremarkable noncontrast appearance of the liver, gallbladder, spleen, pancreas, and adrenal glands. There is no abdominal lymphadenopathy. There is normal caliber of the abdominal aorta. The stomach and duodenum are unremarkable. There are no abnormally dilated small bowel loops. The appendix is noninflamed. There is no colonic wall thickening. No inflammatory changes are demonstrated in the mesentery. There is mild rectal distention with stool, suggesting constipation. The osseous structures are unremarkable. The included lung bases are clear. Impression: A 3 mm left distal ureteral stone. Mild left hydronephrosis. Additional 2 mm nonobstructing right renal stone. Please note that all CT scans at this facility use dose modulation, iterative reconstruction, and/or weight-based dosing when appropriate to reduce radiation dose to as low as reasonably achievable. Dictated by Soni Thomas MD @ Sep 11 2020 4:45PM Signed by Dr. Soni Thomas @ Sep 11 2020 4:54PM
== END 2020-09-11 17:15 | disposition home or self-care (01) ==
LOC: JP.ED 15:06
DX: N13.2 Hydronephrosis with renal and ureteral calculous obstruction (principal); J45.909 Unspecified asthma, uncomplicated; F41.9 Anxiety disorder, unspecified; F32.9 Major depressive disorder, single episode, unspecified; Z88.5 Allergy status to narcotic agent; Z79.899 Other long term (current) drug therapy
CPT/HCPCS: 74176; 96372; 99284; A9270; J1885

== ENCOUNTER 2022-08-10 16:18 | Emergency (ER) | payer MEDICAID | END 2022-08-10 18:20 | disposition left against medical advice (07) | LOC: JP.ED 16:18 | DX: Z53.21 Procedure and treatment not carried out due to patient leaving prior to being seen by health care provider (principal) ==

== ENCOUNTER 2022-08-10 18:42 | Emergency (ER) | payer MEDICAID | END 2022-08-10 19:30 | disposition left against medical advice (07) | LOC: JP.ED 18:42 | DX: Z53.21 Procedure and treatment not carried out due to patient leaving prior to being seen by health care provider (principal) ==

== ENCOUNTER 2023-03-24 12:27 | Emergency (ER) | payer MEDICAID ==
[2023-03-24] MEDS ORDERED: Ketorolac 30 MG/ML SDV IM ONE (14:02)
[2023-03-24 15:42] VITALS: BP 125/84; PULSE 85
== END 2023-03-24 15:40 | disposition home or self-care (01) ==
LOC: JP.ED 12:27
DX: S43.402A Unspecified sprain of left shoulder joint, initial encounter (principal); S20.222A Contusion of left back wall of thorax, initial encounter; J45.909 Unspecified asthma, uncomplicated; Z88.5 Allergy status to narcotic agent; Z86.16 Personal history of COVID-19; Y04.0XXA Assault by unarmed brawl or fight, initial encounter; Y92.009 Unspecified place in unspecified non-institutional (private) residence as the place of occurrence of the external cause
CPT/HCPCS: 71046; 71046-26; 73030-26-LT; 73030-LT; 96372; 99282; 99284; J1885

== ENCOUNTER 2023-06-17 20:24 | Emergency (ER) | payer MEDICAID ==
[2023-06-17 21:24] VITALS: BP 104/68; PULSE 79
[2023-06-17 21:55] LABS: APPEARANCE,URINE SLIGHTLY CLOUDY (CLEAR); BILIRUBIN,URINE NEGATIVE (NEGATIVE); COLOR,URINE YELLOW (YELLOW); GLUCOSE,URINE NEGATIVE (NEGATIVE); KETONES,URINE TRACE mg/dL (NEGATIVE); LEUKOCYTE ESTERASE,URINE NEGATIVE (NEGATIVE); NITRITE,URINE NEGATIVE (NEGATIVE); OCCULT BLOOD,URINE MODERATE (NEGATIVE); PROTEIN,URINE >=300 mg/dL (NEGATIVE)
[2023-06-17 22:00] LABS: WBC,URINE 0-5 (0-5)
[2023-06-17 22:01] LABS: BASOPHILS ABSOLUTE AUTO 0.03 K/uL (0.00-0.10); BASOPHILS PERCENT AUTO 0.4 % (0.1-1.3); EOSINOPHILS ABSOLUTE AUTO 0.04 K/uL (0.00-0.40); EOSINOPHILS PERCENT AUTO 0.6 % (0.0-5.4); HEMATOCRIT 41.9 % (38.4-49.7); HEMOGLOBIN 14.2 g/dL (12.9-16.9); IMMATURE GRAN PERCENT AUTO 0.1 % (0.0-0.7); LYMPHOCYTES PERCENT AUTO 31.1 % (11.4-47.7); MEAN CORPUSCULAR HEMOGLOBIN 29.1 pg (31.6-35.5); MEAN CORPUSCULAR HGB CONC 33.9 g/dL (31.6-35.5); MEAN CORPUSCULAR VOLUME 85.9 fL (81.4-99.0); MONOCYTES ABSOLUTE AUTO 0.51 K/uL (0.20-0.90); MONOCYTES PERCENT AUTO 7.5 % (3.3-12.6); NEUTROPHILS ABSOLUTE AUTO 4.07 K/uL (1.0-7.6); NEUTROPHILS PERCENT AUTO 60.3 % (40.0-78.1); PLATELET COUNT,PLT 263 K/uL (130-375); RED BLOOD CELL COUNT 4.88 M/uL (4.14-5.76); WHITE BLOOD CELL COUNT,WBC 6.8 K/uL (3.2-11.0)
[2023-06-17 22:01] LABS: AMORPHOUS SEDIMENT,URINE MODERATE; BACTERIA,URINE FEW; EPITHELIAL CELLS,URINE NOT SEEN; MUCUS,URINE MANY
[2023-06-17 22:05] LABS: IMMATURE GRAN ABSOLUTE AUTO 0.01 K/uL (0.00-0.23)
[2023-06-17 22:15] LABS: CALCIUM 9.9 mg/dL (8.5-10.1); CREATININE 1.2 mg/dL (0.8-1.3); EST CRCL DRUG DOSING (CG) 76.78 mL/min; POTASSIUM,K 4.3 mmol/L (3.6-5.2)
== END 2023-06-18 00:51 | disposition home or self-care (01) ==
LOC: JP.ED 20:24
DX: N20.0 Calculus of kidney (principal); J45.909 Unspecified asthma, uncomplicated; Z86.16 Personal history of COVID-19; Z72.0 Tobacco use; Z88.5 Allergy status to narcotic agent
CPT/HCPCS: 36415; 74176; 80048; 81001; 85025; 99283; 99284

== ENCOUNTER 2023-09-02 17:21 | Emergency (ER) | payer MEDICAID ==
[2023-09-02 18:48] VITALS: BP 109/45; PULSE 57
[2023-09-02] MEDS ORDERED: Ketorolac 30 MG/ML SDV IM ONE (18:49)
[2023-09-02 18:52] LABS: APPEARANCE,URINE CLOUDY (CLEAR); BILIRUBIN,URINE NEGATIVE (NEGATIVE); COLOR,URINE YELLOW (YELLOW); GLUCOSE,URINE NEGATIVE (NEGATIVE); KETONES,URINE NEGATIVE (NEGATIVE); LEUKOCYTE ESTERASE,URINE NEGATIVE (NEGATIVE); NITRITE,URINE NEGATIVE (NEGATIVE); OCCULT BLOOD,URINE LARGE (NEGATIVE); PH,URINE 8.5 (5.0-8.0); PROTEIN,URINE >=300 mg/dL (NEGATIVE); UROBILINOGEN,URINE 0.2 EU/dL (0.2-1.0)
[2023-09-02 18:58] LABS: AMORPHOUS SEDIMENT,URINE NOT SEEN; BACTERIA,URINE FEW; EPITHELIAL CELLS,URINE NOT SEEN; MUCUS,URINE NOT SEEN; WBC,URINE 0-5 (0-5)
== END 2023-09-02 19:56 | disposition home or self-care (01) ==
LOC: JP.ED 17:21
DX: N23 Unspecified renal colic (principal); N20.0 Calculus of kidney; J45.909 Unspecified asthma, uncomplicated; Z88.5 Allergy status to narcotic agent
CPT/HCPCS: 74176; 81001; 96372; 99284; J1885

== ENCOUNTER 2023-12-13 04:48 | Emergency (ER) | payer MEDICAID ==
[2023-12-13] MEDS ORDERED: Sodium Chloride 0.9% 1,000 ML IV ONE (05:31)
[2023-12-13 05:36] LABS: BASOPHILS ABSOLUTE AUTO 0.04 K/uL (0.00-0.10); BASOPHILS PERCENT AUTO 0.4 % (0.1-1.3); EOSINOPHILS ABSOLUTE AUTO 0.13 K/uL (0.00-0.40); EOSINOPHILS PERCENT AUTO 1.3 % (0.0-5.4); HEMATOCRIT 37.2 % (38.4-49.7); HEMOGLOBIN 12.9 g/dL (12.9-16.9); IMMATURE GRAN PERCENT AUTO 0.2 % (0.0-0.7); LYMPHOCYTES ABSOLUTE AUTO 3.04 K/uL (0.8-3.3); LYMPHOCYTES PERCENT AUTO 31.3 % (11.4-47.7); MEAN CORPUSCULAR HEMOGLOBIN 29.5 pg (31.6-35.5); MEAN CORPUSCULAR HGB CONC 34.7 g/dL (31.6-35.5); MEAN CORPUSCULAR VOLUME 84.9 fL (81.4-99.0); MONOCYTES ABSOLUTE AUTO 0.59 K/uL (0.20-0.90); MONOCYTES PERCENT AUTO 6.1 % (3.3-12.6); NEUTROPHILS PERCENT AUTO 60.7 % (40.0-78.1); PLATELET COUNT,PLT 205 K/uL (130-375); RED BLOOD CELL COUNT 4.38 M/uL (4.14-5.76); WHITE BLOOD CELL COUNT,WBC 9.7 K/uL (3.2-11.0)
[2023-12-13 05:38] LABS: IMMATURE GRAN ABSOLUTE AUTO 0.02 K/uL (0.00-0.23)
[2023-12-13 05:45] LABS: CALCIUM 8.1 mg/dL (8.5-10.1); CREATININE 1.3 mg/dL (0.8-1.3); EST CRCL DRUG DOSING (CG) 78.94 mL/min; POTASSIUM,K 3.5 mmol/L (3.6-5.2)
[2023-12-13 05:50] LABS: ANION GAP 12.5 mmol/L (5.0-14.0)
[2023-12-13 05:57] LABS: APPEARANCE,URINE CLEAR (CLEAR); BILIRUBIN,URINE NEGATIVE (NEGATIVE); COLOR,URINE YELLOW (YELLOW); GLUCOSE,URINE NEGATIVE (NEGATIVE); KETONES,URINE NEGATIVE (NEGATIVE); LEUKOCYTE ESTERASE,URINE NEGATIVE (NEGATIVE); NITRITE,URINE NEGATIVE (NEGATIVE); OCCULT BLOOD,URINE TRACE-INTACT (NEGATIVE); PROTEIN,URINE NEGATIVE (NEGATIVE); UROBILINOGEN,URINE 0.2 EU/dL (0.2-1.0)
[2023-12-13 06:03] LABS: WBC,URINE 0-5 (0-5)
[2023-12-13 06:04] LABS: AMORPHOUS SEDIMENT,URINE NOT SEEN; BACTERIA,URINE FEW; EPITHELIAL CELLS,URINE RARE; MUCUS,URINE NOT SEEN
[2023-12-13 06:34] VITALS: BP 100/52; PULSE 78
[2023-12-17 12:08] LABS: APTIMA MEDIA TYPE Urine; C. TRACHOMATIS BY TMA Negative (Negative); N. GONORRHOEAE BY TMA Negative (Negative); SPECIMEN SOURCE Urine
== END 2023-12-13 07:29 | disposition home or self-care (01) ==
LOC: JP.ED 04:48
DX: N39.0 Urinary tract infection, site not specified (principal); J45.909 Unspecified asthma, uncomplicated; F17.210 Nicotine dependence, cigarettes, uncomplicated; Z88.5 Allergy status to narcotic agent; Z79.899 Other long term (current) drug therapy; Z86.16 Personal history of COVID-19
CPT/HCPCS: 36415; 74176; 80048; 81001; 85025; 87491; 87591; 96360; 99283; 99284-25; C1758; J7030

== ENCOUNTER 2024-01-17 14:24 | Emergency (ER) | payer MEDICAID ==
[2024-01-17 16:04] VITALS: BP 107/57; PULSE 58
[2024-01-17] MEDS: Ketorolac 30 MG/ML SDV IM ONE (17:26)
[2024-01-17] MEDS: Cyclobenzaprine 10 MG Tab PO ONE (17:27)
== END 2024-01-17 18:47 | disposition home or self-care (01) ==
LOC: JP.ED 14:24
DX: S16.1XXA Strain of muscle, fascia and tendon at neck level, initial encounter (principal); Z79.899 Other long term (current) drug therapy; Z88.5 Allergy status to narcotic agent; X58.XXXA Exposure to other specified factors, initial encounter
CPT/HCPCS: 72125; 76377; 96372; 99283; A9270; J1885

== ENCOUNTER 2024-11-05 13:44 | Emergency (ER) | payer MEDICAID ==
[2024-11-05 14:07] VITALS: BP 123/82; PULSE 110
[2024-11-05 16:01] LABS: COLOR,URINE OTHER (YELLOW)
[2024-11-05 16:03] LABS: APPEARANCE,URINE CLEAR (CLEAR); BACTERIA,URINE RARE; MUCUS,URINE RARE; RBC,URINE NOT SEEN (0-5); WBC,URINE 0-5 (0-5)
[2024-11-05 16:04] LABS: AMORPHOUS SEDIMENT,URINE NOT SEEN; EPITHELIAL CELLS,URINE NOT SEEN
== END 2024-11-05 17:37 | disposition home or self-care (01) ==
LOC: JP.ED 13:44
DX: R30.0 Dysuria (principal); J45.909 Unspecified asthma, uncomplicated; Z86.16 Personal history of COVID-19; Z88.5 Allergy status to narcotic agent; Z79.899 Other long term (current) drug therapy
CPT/HCPCS: 81001; 99283

== ENCOUNTER 2024-11-27 19:02 | Emergency (ER) | payer MEDICAID ==
[2024-11-27 19:13] VITALS: BP 131/65; PULSE 66
== END 2024-11-27 19:11 | disposition left against medical advice (07) ==
LOC: JP.ED 19:02
DX: Z53.21 Procedure and treatment not carried out due to patient leaving prior to being seen by health care provider (principal)

== ENCOUNTER 2024-12-19 09:44 | Emergency (ER) | payer MEDICAID ==
[2024-12-19 10:01] VITALS: BP 110/58; PULSE 54
[2024-12-19] MEDS: Diphtheria,Pertussis(Acell),Tetanus Vaccine 0.5 ML Syringe IM ONE (10:38)
== END 2024-12-19 10:48 | disposition home or self-care (01) ==
LOC: JP.ED 09:44
DX: S61.012A Laceration without foreign body of left thumb without damage to nail, initial encounter (principal); F17.210 Nicotine dependence, cigarettes, uncomplicated; Z88.5 Allergy status to narcotic agent; Z86.16 Personal history of COVID-19; Z23 Encounter for immunization; W26.8XXA Contact with other sharp object(s), not elsewhere classified, initial encounter; Y93.89 Activity, other specified
CPT/HCPCS: 12001; 90471; 90715; 99283-25

== ENCOUNTER 2025-01-26 18:35 | Emergency (ER) | payer OTHER, MEDICAID ==
[2025-01-26 18:47] VITALS: BP 110/63; PULSE 70
[2025-01-26] MEDS: Bacitracin Oint 1 GM U/D Packet TOP ONE (18:54)
== END 2025-01-26 18:59 | disposition home or self-care (01) ==
LOC: JP.ED 18:35
DX: S61.411A Laceration without foreign body of right hand, initial encounter (principal); Z88.5 Allergy status to narcotic agent; Z86.16 Personal history of COVID-19; W26.8XXA Contact with other sharp object(s), not elsewhere classified, initial encounter
CPT/HCPCS: 12001; 99282; 99283

== ENCOUNTER 2025-01-27 15:28 | Emergency (ER) | payer MEDICAID ==
[2025-01-27 15:38] VITALS: BP 139/82; PULSE 83
[2025-01-27 16:58] LABS: APPEARANCE,URINE CLEAR (CLEAR); BILIRUBIN,URINE NEGATIVE (NEGATIVE); COLOR,URINE YELLOW (YELLOW); GLUCOSE,URINE NEGATIVE (NEGATIVE); KETONES,URINE 80 mg/dL (NEGATIVE); LEUKOCYTE ESTERASE,URINE NEGATIVE (NEGATIVE); NITRITE,URINE NEGATIVE (NEGATIVE); OCCULT BLOOD,URINE TRACE-INTACT (NEGATIVE); PROTEIN,URINE NEGATIVE (NEGATIVE); UROBILINOGEN,URINE 0.2 EU/dL (0.2-1.0)
== END 2025-01-27 17:39 | disposition home or self-care (01) ==
LOC: JP.ED 15:28
DX: N13.9 Obstructive and reflux uropathy, unspecified (principal); F17.210 Nicotine dependence, cigarettes, uncomplicated; Z86.16 Personal history of COVID-19; Z88.5 Allergy status to narcotic agent
CPT/HCPCS: 81003; 99283; 99284

== ENCOUNTER 2025-01-30 18:04 | Emergency (ER) | payer MEDICAID ==
[2025-01-30] MEDS: Doxycycline 100 MG Cap PO ONE (20:51)
[2025-01-30] MEDS: cefTRIAXone 2 GM in Sodium Chloride 0.9% 50 ML IV ONE (20:52)
[2025-01-30 21:40] VITALS: BP 106/55; PULSE 89
[2025-01-30] MEDS: Phenazopyridine 95 MG Tab PO ONE (22:37)
[2025-01-30 22:46] LABS: APPEARANCE,URINE CLEAR (CLEAR); BILIRUBIN,URINE SMALL (NEGATIVE); COLOR,URINE YELLOW (YELLOW); GLUCOSE,URINE NEGATIVE (NEGATIVE); KETONES,URINE 80 mg/dL (NEGATIVE); LEUKOCYTE ESTERASE,URINE NEGATIVE (NEGATIVE); NITRITE,URINE NEGATIVE (NEGATIVE); OCCULT BLOOD,URINE SMALL (NEGATIVE); PH,URINE 6.5 (5.0-8.0); PROTEIN,URINE 30 mg/dL (NEGATIVE); UROBILINOGEN,URINE 0.2 EU/dL (0.2-1.0)
[2025-01-30 22:52] LABS: AMORPHOUS SEDIMENT,URINE NOT SEEN; BACTERIA,URINE FEW; EPITHELIAL CELLS,URINE RARE; MUCUS,URINE NOT SEEN; WBC,URINE 0-5 (0-5)
== END 2025-01-30 23:35 | disposition home or self-care (01) ==
LOC: JP.ED 18:04
DX: N41.9 Inflammatory disease of prostate, unspecified (principal); J45.909 Unspecified asthma, uncomplicated; Z86.16 Personal history of COVID-19; Z88.5 Allergy status to narcotic agent
CPT/HCPCS: 36415; 74018; 81001; 82272; 96365; 99284; A9270; G0103; J0696

== ENCOUNTER 2025-01-31 20:31 | Emergency (ER) | payer MEDICAID ==
[2025-01-31 20:41] VITALS: BP 113/76; PULSE 82
== END 2025-01-31 22:28 | disposition home or self-care (01) ==
LOC: JP.ED 20:31
DX: R39.11 Hesitancy of micturition (principal); F17.200 Nicotine dependence, unspecified, uncomplicated; Z88.5 Allergy status to narcotic agent; Z79.899 Other long term (current) drug therapy; Z86.16 Personal history of COVID-19
CPT/HCPCS: 99283

== ENCOUNTER 2025-02-19 14:50 | Emergency (ER) | payer MEDICAID ==
[2025-02-19 15:12] VITALS: BP 105/81; PULSE 84
== END 2025-02-19 15:32 | disposition home or self-care (01) ==
LOC: JP.ED 14:50
DX: K08.89 Other specified disorders of teeth and supporting structures (principal); J45.909 Unspecified asthma, uncomplicated; Z88.6 Allergy status to analgesic agent; Z79.899 Other long term (current) drug therapy; Z86.16 Personal history of COVID-19
CPT/HCPCS: 99282; 99283

== ENCOUNTER 2025-05-28 16:24 | Emergency (ER) | payer MEDICAID ==
[2025-05-28 17:10] VITALS: BP 123/77; PULSE 85
[2025-05-28] MEDS ORDERED: fentaNYL 100 MCG/2 ML SDV NASBOTH ONE (17:12)
== END 2025-05-28 17:28 | disposition home or self-care (01) ==
LOC: JP.ED 16:24
DX: K04.7 Periapical abscess without sinus (principal); J45.909 Unspecified asthma, uncomplicated; F17.210 Nicotine dependence, cigarettes, uncomplicated; Z86.16 Personal history of COVID-19; Z88.5 Allergy status to narcotic agent; Z79.899 Other long term (current) drug therapy
CPT/HCPCS: 99282

== ENCOUNTER 2025-06-14 15:47 | Emergency (ER) | payer MEDICAID ==
[2025-06-14 16:13] VITALS: BP 137/74; PULSE 108
[2025-06-14] MEDS: Ketorolac 30 MG/ML SDV IM ONE (18:30)
== END 2025-06-14 18:30 | disposition home or self-care (01) ==
LOC: JP.ED 15:47
DX: K02.9 Dental caries, unspecified (principal); F17.200 Nicotine dependence, unspecified, uncomplicated; Z88.5 Allergy status to narcotic agent; Z86.16 Personal history of COVID-19
CPT/HCPCS: 99282; 99283

== ENCOUNTER 2025-07-23 11:58 | Emergency (ER) | payer MEDICAID ==
[2025-07-23 13:26] VITALS: BP 119/62; PULSE 88
== END 2025-07-23 14:13 | disposition home or self-care (01) ==
LOC: JP.ED 11:58
DX: K08.89 Other specified disorders of teeth and supporting structures (principal); J45.909 Unspecified asthma, uncomplicated; Z86.16 Personal history of COVID-19; F17.200 Nicotine dependence, unspecified, uncomplicated; Z88.5 Allergy status to narcotic agent; Z79.899 Other long term (current) drug therapy
CPT/HCPCS: 99282

== ENCOUNTER 2025-09-11 12:37 | Emergency (ER) | payer MEDICAID ==
[2025-09-11 13:20] LABS: APPEARANCE,URINE CLEAR (CLEAR); GLUCOSE,URINE NEGATIVE (NEGATIVE); OCCULT BLOOD,URINE NEGATIVE (NEGATIVE)
[2025-09-11 13:34] LABS: SQUAMOUS EPITHELIAL CELLS,UR RARE /HPF; UROTHELIAL CELLS,URINE NOT SEEN /HPF
[2025-09-11 14:21] VITALS: BP 104/65; PULSE 72
== END 2025-09-11 15:00 | disposition home or self-care (01) ==
LOC: JP.ED 12:37
DX: M54.50 Low back pain, unspecified (principal); J45.909 Unspecified asthma, uncomplicated; Z88.5 Allergy status to narcotic agent; Z79.899 Other long term (current) drug therapy; Z86.16 Personal history of COVID-19
CPT/HCPCS: 81001; 99283; A9270

== ENCOUNTER 2025-10-30 09:26 | Emergency (ER) | payer MEDICAID ==
[2025-10-30] MEDS: Ondansetron 4 MG/2 ML SDV IVPUSH ONE (09:54)
[2025-10-30] MEDS: Ketorolac 30 MG/ML SDV IVPUSH ONE (10:02)
[2025-10-30 11:15] VITALS: BP 101/54; PULSE 54
[2025-10-30 11:40] LABS: APPEARANCE,URINE TURBID (CLEAR); GLUCOSE,URINE NEGATIVE (NEGATIVE); OCCULT BLOOD,URINE LARGE (NEGATIVE)
[2025-10-30 11:47] LABS: SQUAMOUS EPITHELIAL CELLS,UR NOT SEEN /HPF; UROTHELIAL CELLS,URINE NOT SEEN /HPF
== END 2025-10-30 12:15 | disposition home or self-care (01) ==
LOC: JP.ED 09:26
DX: N20.1 Calculus of ureter (principal); E86.0 Dehydration; J45.909 Unspecified asthma, uncomplicated; Z86.16 Personal history of COVID-19; Z88.5 Allergy status to narcotic agent
CPT/HCPCS: 74176; 81001; 87086; 96361; 96374; 96375; 99283; 99284; J1171; J1885; J2405; J7030

== ENCOUNTER 2025-11-22 11:28 | Emergency (ER) | payer MEDICAID ==
[2025-11-22 12:14] VITALS: BP 118/66; PULSE 113
== END 2025-11-22 12:22 | disposition left against medical advice (07) ==
LOC: JP.ED 11:28
DX: R10.31 Right lower quadrant pain (principal); Z88.5 Allergy status to narcotic agent; Z86.16 Personal history of COVID-19
CPT/HCPCS: 99283